=== PATIENT | female | born 1990 | race Caucasian/White ===

== ENCOUNTER → 2017-01-20 | Outpatient (REF) ==
[~2017-01-20] MED LIST: MOTRIN 600600 MG/TAB PO; PEPCID 20MG TAB20 MG PO; PERCOCET 325 MG1 TA2 PO; PRENATAL1 TA7 PO
== END ==
LOC: WSOH 14:52
DX: Z11.1 Encounter for screening for respiratory tuberculosis (principal)

== ENCOUNTER → 2017-01-27 | Outpatient (REF) | LOC: WSOH 08:20 | DX: Z02.89 Encounter for other administrative examinations (principal) ==

== ENCOUNTER → 2017-10-20 | Outpatient (CLI) | payer BC | LOC: COL.RAD 08:09 | DX: N83.201 Unspecified ovarian cyst, right side (principal); N85.8 Other specified noninflammatory disorders of uterus; N83.8 Other noninflammatory disorders of ovary, fallopian tube and broad ligament; D25.9 Leiomyoma of uterus, unspecified ==